=== PATIENT | female | born 1980 | race Caucasian/White ===

== ENCOUNTER 2019-09-06 09:24 | Emergency (ER) | payer SELFPAY ==
[~2019-09-06] VITALS: Ht 165.1 cm; Wt 76.4 kg
[2019-09-06 10:26] VITALS: BP 120/78
--- NOTE | 2019-09-06 10:41 | NUR ---
Patient discharged to home in stable condition. Written and verbal after care instructions given. Patient verbalizes understanding of instruction.
== END 2019-09-06 10:41 | disposition home or self-care (01) ==
LOC: ER 09:24
DX: J06.9 Acute upper respiratory infection, unspecified (principal)